=== PATIENT | male | born 1970 | race African-American/Black ===

== ENCOUNTER 2017-05-10 06:31 | Emergency (ER) | payer SELFPAY ==
[~2017-05-10] VITALS: Ht 188 cm; Wt 143.0 kg
[2017-05-10] MEDS ORDERED: ALBUTEROL (0.083%) 2.5MG/3ML NEB HHN ONE (08:15)
[2017-05-10 10:17] VITALS: BP 127/72
== END 2017-05-10 11:01 | disposition home or self-care (01) ==
LOC: ER 07:28
DX: R06.02 Shortness of breath (principal)
CPT/HCPCS: 36415; 71010; 83880; 85379; 93005; 94640; 99285; J7611; Z7610